=== PATIENT | male | born 1980 | race Caucasian/White ===

== ENCOUNTER 2016-12-22 22:02 | Emergency (ER) | payer OTHER ==
[~2016-12-22] VITALS: Ht 188 cm; Wt 81.6 kg
[2016-12-22 22:02] VITALS: BP 131/79
== END 2016-12-22 23:35 | disposition home or self-care (01) ==
LOC: ER 22:09
DX: S51.011A Laceration without foreign body of right elbow, initial encounter (principal); S10.91XA Abrasion of unspecified part of neck, initial encounter; Y04.0XXA Assault by unarmed brawl or fight, initial encounter; Y92.89 Other specified places as the place of occurrence of the external cause; Y93.89 Activity, other specified; Y99.8 Other external cause status
CPT/HCPCS: 73080-TC; 90715; A4606; A6402; J3490; Z7610

== ENCOUNTER 2016-12-27 20:30 | Emergency (ER) | payer OTHER ==
[~2016-12-27] VITALS: Ht 188 cm; Wt 88.5 kg
[2016-12-27 20:42] VITALS: BP 152/78
== END 2016-12-27 21:05 | disposition home or self-care (01) ==
LOC: ER 20:32
DX: L03.113 Cellulitis of right upper limb (principal)
CPT/HCPCS: 99283; A4606; Z7610

== ENCOUNTER 2017-10-07 04:14 | Emergency (ER) | payer BC, OTHER ==
[~2017-10-07] VITALS: Ht 188 cm; Wt 88.5 kg
--- NOTE | 2017-10-07 04:18 | NUR ---
Ely decker in ED - 10/07/17 at 0421 by ERICKA CALLED PT'S NAME THREE TIMES, NO RESPONSE. WILL TRY AGAIN AT A LATER TIME
[2017-10-07 04:25] VITALS: BP 110/67
== END 2017-10-07 06:18 | disposition home or self-care (01) ==
LOC: ER 04:17
DX: S60.212A Contusion of left wrist, initial encounter (principal); S60.222A Contusion of left hand, initial encounter; Z60.2 Problems related to living alone; V89.2XXA Person injured in unspecified motor-vehicle accident, traffic, initial encounter; Y93.89 Activity, other specified; Y92.413 State road as the place of occurrence of the external cause; Y99.8 Other external cause status
CPT/HCPCS: 73110; 73130; 99284; A4606; Z7610

== ENCOUNTER 2018-03-20 21:57 | Emergency (ER) | payer BC, OTHER ==
[~2018-03-20] VITALS: Ht 188 cm; Wt 88.5 kg
[2018-03-20 22:13] VITALS: BP 119/78
== END 2018-03-21 00:19 | disposition home or self-care (01) ==
LOC: ER 21:58
DX: S40.012A Contusion of left shoulder, initial encounter (principal); Z60.2 Problems related to living alone; V49.69XA Unspecified car occupant injured in collision with other motor vehicles in traffic accident, initial encounter; Y93.89 Activity, other specified; Y92.413 State road as the place of occurrence of the external cause; Y99.8 Other external cause status
CPT/HCPCS: 73030-TC; A4606

== ENCOUNTER 2018-12-23 18:37 | Emergency (ER) | payer BC, OTHER ==
[~2018-12-23] VITALS: Ht 188 cm; Wt 90.7 kg
--- NOTE | 2018-12-23 18:46 | NUR ---
PT SEEN AND EXAMINED BY CHESTER BACA.
--- NOTE | 2018-12-23 19:10 | NUR ---
ER PHLEB AT BEDSIDE FOR BLOOD DRAW.
--- NOTE | 2018-12-23 19:22 | NUR ---
STARTED ON L EYE IRRIGATION. TOLERATED WELL.
[2018-12-23] MEDS ORDERED: TETRAcaine 5 ML BOTTLE EACHEYE ONE (19:30)
[2018-12-25 08:06] LABS: HIV SCRN 4G wRFX Non Reactive (Non Reactive)
== END 2018-12-23 19:37 | disposition home or self-care (01) ==
LOC: ER 18:40
DX: Z77.21 Contact with and (suspected) exposure to potentially hazardous body fluids (principal); Z60.2 Problems related to living alone
CPT/HCPCS: 36415; 86706; 86803; 87340; 87389; 99283; J7030